=== PATIENT | female | born 1940 | race Two or more races ===

== ENCOUNTER 2023-01-15 13:30 | Inpatient (IN) | payer OTHER ==
[~2023-01-15] VITALS: Ht 152.4 cm; Wt 69.9 kg
[2023-01-20] MEDS ORDERED: XARELTO10 M1 (08:12)
[2023-01-20] MEDS ORDERED: ISOSORBIDE MONO60 M2 (08:12)
[2023-01-20] MEDS ORDERED: CELECOXIB200 MG (08:12)
[2023-01-20] MEDS ORDERED: GABAPENTIN100 M2 (08:12)
== END 2023-01-22 22:36 | DRG 470 ==
LOC: O/R 01-20 06:00 → SURG 01-20 06:00 → SURH 01-20 13:30 → SURG 01-20 13:57
PROVIDERS: ADMIT Orthopaedic Surgery; ATTEND Orthopaedic Surgery
PROC: 0SRD069 Replacement of Left Knee Joint with Oxidized Zirconium on Polyethylene Synthetic Substitute, Cemented, Open Approach (ICD-10-PCS; principal; 2023-01-20 13:45)
DX: M17.12 Unilateral primary osteoarthritis, left knee (principal); M65.862 Other synovitis and tenosynovitis, left lower leg; I10 Essential (primary) hypertension; E11.9 Type 2 diabetes mellitus without complications; Z79.84 Long term (current) use of oral hypoglycemic drugs